=== PATIENT | male | born 1935 | race Caucasian/White ===

== ENCOUNTER → 2019-04-07 | Outpatient (CLI) | payer MEDICARE, OTHER ==
--- NOTE | 2019-04-18 10:22 | RAD ---
RIGHT SHOULDER 3 VIEWS: HISTORY: Right shoulder pain. FINDINGS/IMPRESSION: Degenerative changes are seen in the acromioclavicular and glenohumeral joints. No fracture, disloca tion, or bony destruction is seen.
== END ==
LOC: BICRAD 12:36
DX: M25.511 Pain in right shoulder (principal); M19.011 Primary osteoarthritis, right shoulder

== ENCOUNTER 2019-04-28 10:52 | Outpatient (CLI) | payer MEDICARE, OTHER ==
--- NOTE | 2019-04-28 12:42 | CT ---
CT HEAD WITHOUT CONTRAST: Date: 04/28/19 Axial tomograms obtained without IV enhancement. INDICATION: Dementia. No comparison. FINDINGS: Mild cortical volume loss. Ventricles have normal size and position. Mild ischemic white matter sahu e. No mass, edema, hemorrhage, or evidence of acute infarct. Sinuses and mastoids are clear. IMPRESSION: Mild cortical volume loss. Mild chronic ischemic white matter change. POS: [facility]
== END 2019-04-28 10:53 | disposition home or self-care (01) ==
LOC: BICCT 10:52
PROVIDERS: ATTEND Psychiatry & Neurology Neurology
DX: F03.90 Unspecified dementia, unspecified severity, without behavioral disturbance, psychotic disturbance, mood disturbance, and anxiety (principal)
CPT/HCPCS: 70450

== ENCOUNTER 2019-08-18 11:46 | Outpatient (CLI) | payer MEDICARE, OTHER ==
[2019-08-18] MEDS ORDERED: Iopamidol 370 76% 100 ML VIAL ONE (14:30)
--- NOTE | 2019-08-18 15:02 | CT ---
CT ABDOMEN AND PELVIS PERFORMED WITH AND WITHOUT CONTRAST ENHANCEMENT: HISTORY: Nocturia and hematuria. Enlarged prostate. FINDINGS: Lung bases are clear of any infiltrative process. Small thin-walled cyst is seen within the left bas e. Some minimal atelectasis or scar within the right lower lobe. The liver, spleen, and pancreas regions appear unremarkable. The gallbladder is normal. Right and left adrenal glands are normal. Hypodensities involving both kidneys, most of which are to o small to characterize but are probably related to cysts are noted. There is a larger cyst involvin g the right kidney measuring 5.6 cm. There is a punctate nonobstructing mid pole left renal calculus and a tiny punctate nonobstructing right renal calculus. No obstruction or ureteral calculi identif ied. There is a small hyperdense lesion involving the right kidney, probably a tiny hemorrhagic cyst . There is no significant periaortic or mesenteric adenopathy. Infrarenal aorta is minimally aneury smal measuring 3 cm. A large exophytic cyst is seen arising from the region of the lower pole of the left kidney. It measures [address] OF PELVIS PERFORMED WITH AND WITHOUT CONTRAST ENHANCEMENT: The prostate is enlarged. No pelvic lymphadenopathy or mass. Review of osseous structures show arthritic changes of the spine and hips. A benign-appearing osseou s lesion in the intratrochanteric region in the left hip is present. IMPRESSION: 1. Punctate nonobstructing bilateral renal calculi. 2. Hypo- and hyperdensities involving both kidneys statistically most likely cysts. Some of these a re probably hemorrhagic. The larger cysts are in mid pole right renal and lower pole left renal cyst s. 3. Enlarged prostate. 4. Small hiatal hernia. POS: [facility]
== END 2019-08-18 11:47 | disposition home or self-care (01) ==
LOC: CT 11:46
PROVIDERS: ATTEND Urology
DX: R35.1 Nocturia (principal); R31.9 Hematuria, unspecified; N20.0 Calculus of kidney; N40.0 Benign prostatic hyperplasia without lower urinary tract symptoms; K44.9 Diaphragmatic hernia without obstruction or gangrene; N28.1 Cyst of kidney, acquired; R93.422 Abnormal radiologic findings on diagnostic imaging of left kidney; R93.421 Abnormal radiologic findings on diagnostic imaging of right kidney
CPT/HCPCS: 74178; 82565